=== PATIENT | male | born 1970 | race Caucasian/White ===

== ENCOUNTER → 2024-01-12 13:35 | Outpatient (REF) | payer OTHER, SELFPAY | LOC: RCS 13:35 | PROVIDERS: ATTENDING PHYSICIAN Internal Medicine Cardiovascular Disease; FAMILY PHYSICIAN Physician Assistant | DX: R07.89 Other chest pain (principal); I10 Essential (primary) hypertension; R00.2 Palpitations | CPT/HCPCS: 93017 ==

== ENCOUNTER → 2024-07-27 16:46 | Outpatient (REF) | payer OTHER, SELFPAY | LOC: HWRAD 16:46 | PROVIDERS: ATTENDING PHYSICIAN Internal Medicine | DX: M54.50 Low back pain, unspecified (principal) | CPT/HCPCS: 72110 ==

== ENCOUNTER → 2024-11-11 14:02 | Outpatient (REF) | payer OTHER, SELFPAY | LOC: RAD 14:02 | PROVIDERS: ATTENDING PHYSICIAN Internal Medicine | DX: R74.01 Elevation of levels of liver transaminase levels (principal) | CPT/HCPCS: 76700 ==

== ENCOUNTER 2024-12-23 04:26 | Emergency (ER) | payer OTHER, SELFPAY ==
[2024-12-23 04:37] VITALS: BP 146/93
[2024-12-23 05:31] LABS: Hematocrit 40.2 % (39.0-52.0); Hemoglobin 13.1 g/dL (13.0-18.0); Mean Corp Hgb Conc. 32.6 g/dL (33.0-37.0); Mean Corpuscular Hgb 26.4 pg (27.0-31.0); Mean Corpuscular Volume 80.9 fL (80.0-94.0); Platelet Count 206 10^3/uL (130-400); Red Blood Cell Count 4.97 10^6/uL (4.70-6.10); Red Cell Dist. Width 13.7 % (11.5-14.5); White Blood Cell Count 3.7 10^3/uL (4.8-10.8)
[2024-12-23 05:35] LABS: ALT (SGPT) 17 U/L (0-50); AST (SGOT) 19 U/L (17-59); Albumin 3.8 g/dl (3.5-5.0); Alkaline Phosphatase 71 U/L (38-126); Blood Urea Nitrogen 21 mg/dl (9-20); Calcium 9.4 mg/dl (8.4-10.2); Carbon Dioxide 26 mmol/L (22-30); Chloride 108 mmol/L (98-107); Glucose 113 mg/dl (70-99); Potassium 3.9 mmol/L (3.5-5.1); Sodium 142 mmol/L (135-145); Total Bilirubin 0.4 mg/dl (0.2-1.3); Total Protein 6.4 g/dl (6.3-8.2); eGFR > 60.00
[2024-12-23 05:36] LABS: Troponin I < 0.012 ng/ml
[2024-12-23 05:47] VITALS: BMI 38.7
[2024-12-23 07:03] LABS: Absolute Neutrophils -Man Diff 1.6 10^3/uL (1.4-6.5); Band Neutrophils 5 % (0-3); Segmented Neutrophils 39 % (42-75)
[2024-12-23 07:04] LABS: Atypical Lymphocytes 6 %; Eosinophils 2 % (0-6); Lymphocytes 37 % (20-51); Metamyelocytes 1 % (-); Monocytes 10 % (2-9)
[2024-12-23 07:05] LABS: Normal RBC Morphology Yes; Platelets Checked Yes; Total Cells Counted 100
--- NOTE | 2024-12-23 07:14 | ED.GENMED ---
History of Present Illness
General
Chief Complaint: Chest Pain
Source: patient
Time Seen by Provider: 12/23/24 06:02
History of Present Illness
History of Present Illness:
54-year-old male presents with 48 hours of chest pain. States he woke up about 2 days ago with discomfort in his chest. States the pain is worse when he rolls to the side or he lifts his head off the pillow and tucks his chin. Patient states that
when he is not moving there is a mild ache but when he flexes his neck he feels it just the left of sternum around the 2nd or 3rd intercostal space. Patient does have a history of rheumatoid arthritis. Denies any obvious injury. Denies chest pain
with exertion. States he was working and sort of felt fine while working. No shortness of breath. No palpitations. Not significantly worse with laying flat or significantly improved with sitting forward. No hemoptysis. No recent travel. No
family history of blood clots
Past History
Past History
ED Past Medical History: GERD and HTN
ED Past Surgical History: Appendectomy and Cholecystectomy
Social History
Living: with family
Phy Exam
Physical Exam
Physical Exam:
CONSTITUTIONAL Patient alert and oriented to person, place and time. Well-appearing. Vital signs reviewed.
HEAD atraumatic, normocephalic.
EYES eyelids normal to inspection, Extraocular muscles intact, Conjunctiva normal, Sclera normal.
NECK normal range of motion, Trachea midline, no jugular venous distention.
RESPIRATORY CHEST No respiratory distress noted, Chest expansion equal, Bilateral breath sounds clear.
CARDIOVASCULAR regular rate and rhythm, Heart sounds normal.
ABDOMEN abdomen nontender, Bowel sounds normal. No distention.
BACK normal inspection, no obvious deformities
UPPER EXTREMITY range of motion normal, Motor strength normal, no cyanosis, no edema.
LOWER EXTREMITY range of motion normal, Motor strength normal, no cyanosis, no edema.
NEURO Speech normal, No focal motor deficits, Ramiro coma scale 15, Memory normal, Cranial Nerves intact to screening exam.
SKIN skin warm, dry, and normal in color.
Scores
Heart Score for Chest Pain Patients
STEMI patient?: No
History: Slightly or Non-Suspicious
ECG: Normal
Age: >45 - <65 years
Risk Factors: 1 or 2 Risk Factors
Troponin: </= Normal Limit
Heart Score for Chest Pain Patients: 2
Heart Score Risk: 2.5% MACE over next 6 weeks
Course
Orders/Labs/Results
Orders:
Orders
12/23/24 04:27
EKG [Electrocardiogram (*1)] Urgent
Reason for Study: Chest Pain
EKG- Treatment ONCE
12/23/24 04:56
Comprehensive Metabolic Panel Urgent
12/23/24 04:57
Complete Blood Count/With Diff Urgent
Manual Differential Urgent
Troponin I Urgent
12/23/24 06:32
CR Chest - 2 Views Urgent
Comment:
Reason For Exam: cp
12/23/24 06:33
Electrocardiogram (*1) Stat
Reason for Study: Other
Other Reason for Exam: chest pain
EKG- Treatment ONCE
12/23/24 07:15
Vital Signs- Treatment ONCE
Frequency: Once
Abnormal Lab Results
12/23/24 12/23/24
04:56 04:57
WBC 3.7 L 10^3/uL
(4.8-10.8)
MCH 26.4 L pg
(27.0-31.0)
MCHC 32.6 L g/dL
(33.0-37.0)
Segmented Neutrophils 39 L %
(42-75)
Band Neutrophils 5 H %
(0-3)
Monocytes (Manual) 10 H %
(2-9)
Chloride 108 H mmol/L
(98-107)
BUN 21 H mg/dl
(9-20)
Glucose 113 H mg/dl
(70-99)
12/23/24 04:57
12/23/24 04:56
Vital Signs
Initial and Last Documented VS:
Initial Vital Signs
Temp Pulse Resp BP Pulse Ox
98.1 F 73 16 146/93 99
12/23/24 04:37 12/23/24 04:37 12/23/24 04:37 12/23/24 04:37 12/23/24 04:37
Last Documented Vital Signs
Temp Pulse Resp BP Pulse Ox
98.1 F 64 14 146/93 94
12/23/24 04:37 12/23/24 06:00 12/23/24 06:00 12/23/24 04:37 12/23/24 06:00
MDM/Problems Addressed
Differential Diagnosis Includes:
Acute coronary syndrome, pericarditis, myocarditis, costochondritis, musculoskeletal etiology, pulmonary embolism, pneumothorax
*Radiology
Radiology exam reviewed: all reviewed NAD by ED Provider
*Pulse Oximetry
Patient hypoxic: no
*EKG
Interpreted by ED Provider?: Yes
Interpretation: normal
Rate: normal
Rhythm: sinus
[place]: normal axis
QRS Pattern: normal QRS
Ischemia: no ischemia
*Follow Up Manager Interpretation
Rate: normal
Interpretation: normal
Rhythm: sinus
*Critical Care Note
Total Time (30-74mins, 75-104mins- exclusive of procedures): Not Applicable
Data Reviewed
Source: patient
Further Testing Considered But Not Given:
Considered D-dimer and CTA but no PE risk. No tachycardia. No tachypnea, no shortness of breath. No hemoptysis
Patient Management
Escalation/DeEscalation of care consider admission/obs:
Patient appears quite well.pain clearly reproducible with movement. trop neg despite 2 days of sx's. does have RA. recommend nsaids and pcp f/u.
ED Attending Note
-
Portions of this chart may have been created with voice recognition software.� Occasional wrong word or��sound alike� substitutions may have occurred due to the inherent limitations of voice recognition software.
Discharge Plan
Departure
Patient Disposition: Home (Routine Discharge)
Date of Disposition: 12/23/24
Time of Disposition: 08:10
Patient with high blood pressure during this ER visit?: Yes
Discharge Problem:
Chest pain
Instructions: Chest Pain PCP Follow Up, BLOOD PRESSURE
Prescriptions:
No Action
lansoprazole [Prevacid] 15 MG capsule,delayed release(DR/EC)
15 mg PO DAILY
losartan [Cozaar] 100 MG tablet
50 mg PO DAILY
metoprolol succinate [Toprol XL] 25 MG tablet extended release 24 hr
12.5 mg PO DAILY Qty: 20 1RF
Referrals:
UNKNOWN - PT DOES,NOT KNOW [Family Provider] -
Activity Restrictions/Additional Instructions:
Please see your doctor in the next 48 hours for reevaluation. Return immediately for worsening pain, shortness breath, palpitations, sweating, nausea, weakness of any kind, numbness, tingling or any other concerns.
Interventions
Interventions:
*Risk Screen - Suicide Last Done: 12/23/24 04:30
*General Assessment Last Done: 12/23/24 09:02
*Neglect/Abuse Screening Last Done: 12/23/24 09:02
*ED- Fall Risk Assessment Last Done: 12/23/24 09:02
*ED COVID-19 Vaccine History Last Done: 12/23/24 09:02
*Nursing Disposition Last Done: 12/23/24 09:02
ED- Cardiac Assessment Last Done: 12/23/24 05:47
Discharge Date and Time
Discharge Date/Time: 12/23/24 09:03
Print Language: [email or web address]
== END 2024-12-23 09:03 | disposition home or self-care (01) ==
LOC: EMR 04:26
PROVIDERS: Emergency Medicine; EMERGENCY PHYSICIAN Emergency Medicine
DX: R07.89 Other chest pain (principal); I10 Essential (primary) hypertension; M06.9 Rheumatoid arthritis, unspecified
CPT/HCPCS: 99285; 71046; 80053; 84484; 85025; 93005